=== PATIENT | female | born 1965 | race Caucasian/White ===

== ENCOUNTER 2022-07-30 19:05 | Emergency (ER) | payer OTHER ==
[~2022-07-30] VITALS: Ht 162.6 cm; Wt 72.6 kg
[2022-07-30 19:18] VITALS: BP 133/110
--- NOTE | 2022-07-30 19:22 | NUR ---
TO BED 4. ALTAGRACIA FROM [facility] WITH C/O RIGHT LEG/ HIP PAIN AFTER SLIP AND FALL ON PATIO. GUARDED ROM IS NOTED
--- NOTE | 2022-07-30 20:29 | NUR ---
CALL TO [facility] REGARDING DISCHARGE. WILL CALL BACK IN 10 MINUTES
--- NOTE | 2022-07-30 21:00 | NUR ---
PT HAS BEEN DISCHARGED. CALL HAS BEEN PLACED TO [facility], THEY ARE UNABLE TO PROVIDE TRANSPORTATION AT THIS TIME. CALL TO [employer] AND NOTIFIED THAT NO UBER IS AVAILABLE AT THIS TIME. CALL BACK TO [facility] WHO REQUESTS A TAXI BE CALLED AND THEY WILL PAY UPON PTS ARRIVAL
--- NOTE | 2022-07-30 21:20 | NUR ---
CALL TO [facility], NO ANSWER
--- NOTE | 2022-07-30 21:30 | NUR ---
Toño johnson in [facility] - 07/30/22 at 2152 by CARLOS EVERARDO LINDQUIST OBTAINED AND SENT TO LAB
--- NOTE | 2022-07-30 23:05 | NUR ---
Patient discharged with v/s stable. Written and verbal after care instructions given and explained. Patient verbalized understanding. Wheel Chair Assisted with to car. All questions addressed prior to discharge. Advised to follow up with PMD.
== END 2022-07-30 23:05 | disposition home or self-care (01) ==
LOC: MED 19:05
DX: M79.641 Pain in right hand (principal); M79.661 Pain in right lower leg; I10 Essential (primary) hypertension; E03.9 Hypothyroidism, unspecified; Z88.8 Allergy status to other drugs, medicaments and biological substances; Z79.899 Other long term (current) drug therapy; W18.30XA Fall on same level, unspecified, initial encounter; Y93.89 Activity, other specified; Y92.89 Other specified places as the place of occurrence of the external cause; Y99.8 Other external cause status
CPT/HCPCS: 99281

== ENCOUNTER 2022-08-09 15:21 | Emergency (ER) | payer OTHER ==
[~2022-08-09] VITALS: Ht 170.2 cm; Wt 99.8 kg
[2022-08-09 15:38] VITALS: BP 129/82
--- NOTE | 2022-08-09 15:40 | NUR ---
Patient ALTAGRACIA trasferred to room 10.
--- NOTE | 2022-08-09 19:20 | NUR ---
AWAKE, AMBULATING AT BEDSIDE AND READY FOR DISCHARGE
[2022-08-09 19:40] VITALS: BP 129/82
--- NOTE | 2022-08-09 19:40 | NUR ---
Patient discharged with v/s stable. Written and verbal after care instructions given and explained. Patient verbalized understanding. Ambulatory with steady gait. All questions addressed prior to discharge. Advised to follow up with PMD.
[2022-08-09 20:08] LABS: BARBITURATE, URINE NEGATIVE ng/ml (NEG <=200); BENZODIAZEPINE, URINE NEGATIVE ng/mL (NEG <=200); CANNABINOID, URINE NEGATIVE ng/mL (NEG <=50); COCAINE, URINE NEGATIVE ng/mL (NEG <=300); OPIATE, URINE NEGATIVE ng/mL (NEG <=2000); PHENCYCLIDINE SCREEN,URINE NEGATIVE ng/mL (NEG <=25)
== END 2022-08-09 19:40 | disposition home or self-care (01) ==
LOC: MED 15:21
DX: M54.2 Cervicalgia (principal); I10 Essential (primary) hypertension; Z86.39 Personal history of other endocrine, nutritional and metabolic disease; Z88.8 Allergy status to other drugs, medicaments and biological substances; W18.39XA Other fall on same level, initial encounter; Y92.89 Other specified places as the place of occurrence of the external cause; Y93.89 Activity, other specified; Y99.8 Other external cause status
CPT/HCPCS: 70450; 80305; 99284

== ENCOUNTER 2022-08-16 13:40 | Inpatient (IN) | payer OTHER ==
[~2022-08-16] VITALS: Ht 165.1 cm; Wt 93.0 kg
--- NOTE | 2022-08-16 13:41 | NUR ---
PATIENT BIBA TO BED 3.
--- NOTE | 2022-08-16 13:44 | NUR ---
here for upper back and neck pain, had a fall today am no distress noted, sr up times 2.
[2022-08-16 13:45] VITALS: BP 95/47
[2022-08-16] MEDS ORDERED: KETOROLAC 30 MG/ML VIAL IM ONE (14:15)
--- NOTE | 2022-08-16 14:41 | NUR ---
pt to xr
--- NOTE | 2022-08-16 16:36 | NUR ---
SNORING IN BED, EASILY AROUSABLE, NO SLEEP APNEA NOTED
[2022-08-16] MEDS ORDERED: ACET-10509 PO (16:41)
--- NOTE | 2022-08-16 16:53 | NUR ---
snoring, arousable with shaking, verbally responsive
--- NOTE | 2022-08-16 17:46 | NUR ---
ENTERED ABG RESULTS IN [employer] TECH. NORMAL ABG VALUES WILL TELL RN TO CONSIDER ITTRATING O2 FOR PT. SATURATION FROM ABG IS 94% ON 5L NC. NO DISTRESS NOTED
[2022-08-16 17:54] LABS: BASOPHILS % (AUTO) 0.2 % (0.0-2.0); HEMATOCRIT 34.9 % (36-48); HEMOGLOBIN 11.5 g/dL (12.0-16.0); LYMPHOCYTES # (AUTO) 1.1 K/uL (2.5-16.5); LYMPHOCYTES % (AUTO) 12.1 % (20.5-51.1); MEAN CORPUSCULAR HEMOGLOBIN 29 pg (27-31); MEAN CORPUSCULAR HGB CONC 33 g/dL (33-37); MEAN CORPUSCULAR VOLUME 87.4 fL (80-94); MONOCYTES # (AUTO) 1.3 K/uL (0.8-1.0); NEUTROPHILS # (AUTO) 6.9 K/uL (1.8-7.7); NEUTROPHILS % (AUTO) 73.7 % (42.2-75.2); PLATELET COUNT (AUTO) 182 K/uL (140-450); RED BLOOD CELL COUNT(AUTO) 3.99 MIL/uL (4.20-5.40); RED CELL DISTRIBUTION WIDTH 13.9 % (11.6-13.7); WHITE BLOOD COUNT (AUTO) 9.4 K/uL (4.8-10.8)
[2022-08-16 18:07] LABS: ALBUMIN 2.5 g/dL (3.4-5.0); ANION GAP 16.2 (8-16); CARBON DIOXIDE 23.5 mmol/L (21-32); CREATININE 1.9 mg/dL (0.6-1.3); POTASSIUM 3.7 mmol/L (3.5-5.1); TOTAL BILIRUBIN 0.5 mg/dL (0.0-1.0)
[2022-08-16] MEDS ORDERED: AZITHROMYCIN 500 MG in DEXTROSE 5% 250 ML IV ONE (18:35)
--- NOTE | 2022-08-16 19:30 | NUR ---
57 Y/O F presents with admit for pneumonia. pt is hard to arouse, pt arouses with sternum rubs. unable to obtain pain level at the moment, pt appears to be confused. pt is on 4L NC. skin intact. pmh-schizo allergies-haloperidol
--- NOTE | 2022-08-16 19:30 | NUR ---
assumed care for pt, pt appeared to be resting, respirations even and unlabored. pt awaiting admission.
[2022-08-16] MEDS ORDERED: AZITHROMYCIN 500 MG INJ VIAL IV ONE (19:46)
[2022-08-16] MEDS ORDERED: cefTRIAXone 1,000 MG VIAL ONE (19:46)
--- NOTE | 2022-08-16 19:55 | NUR ---
pt begin to scream "take this shit out of me, i pay to be here, take this shit out of my arm. i will kill you and your baby."
[2022-08-16] MEDS ORDERED: LORazepam 2 MG/ML VIAL IVP ONE (20:10)
[2022-08-16] MEDS ORDERED: HALOPERIDOL IM 5 MG/ML VIAL IVP ONE (20:10)
[2022-08-16] MEDS ORDERED: diphenhydrAMINE 50 MG/ML VIAL IVP ONE (20:10)
--- NOTE | 2022-08-16 21:41 | NUR ---
per admit clerk Hendrickson. pt accepted to [facility] [address] Cruz. Told to report to [phone]. told will call back with transport eta.
--- NOTE | 2022-08-16 22:15 | NUR ---
eta for pt transfer pickup at midnight.
--- NOTE | 2022-08-16 23:10 | NUR ---
order for soft restraints per er doctor. protocol initiated and documented.
--- NOTE | 2022-08-16 23:20 | NUR ---
spoke with nicolette ARCOS from [facility] and gave report. awaiting transfer
[2022-08-17] MEDS ORDERED: NACL 0.9% 1,000 ML IV ONE ×2 (00:05→00:20)
--- NOTE | 2022-08-17 01:40 | NUR ---
pt continuing to yell "get me out of here i dont like it here" pt continues to appear confused. pt awaiting admit
[2022-08-17 01:49] LABS: BILIRUBIN,URINE NEGATIVE (NEGATIVE); BLOOD, URINE 3+ (NEGATIVE); LEUKOCYTE ESTERASE ,URINE 2+ (NEGATIVE); NITRITE, URINE POSITIVE (NEGATIVE); UGLUCOSE NEGATIVE (NEGATIVE)
[2022-08-17 02:25] LABS: APPEARANCE,URINE CLOUDY (CLEAR); COLOR,URINE YELLOW (YELLOW)
[2022-08-17 02:27] LABS: RBC,URINE 0-5 /HPF (0-5)
[2022-08-17 02:28] LABS: WBC,URINE TOO MANY TO COUNT /HPF (0-5)
[2022-08-17 02:28] LABS: BARBITURATE, URINE NEGATIVE ng/ml (NEG <=200); BENZODIAZEPINE, URINE POSITIVE ng/mL (NEG <=200); CANNABINOID, URINE NEGATIVE ng/mL (NEG <=50); COCAINE, URINE NEGATIVE ng/mL (NEG <=300); OPIATE, URINE NEGATIVE ng/mL (NEG <=2000); PHENCYCLIDINE SCREEN,URINE NEGATIVE ng/mL (NEG <=25)
--- NOTE | 2022-08-17 05:12 | NUR ---
pt awaiting transfer. [facility] denied transfer.
--- NOTE | 2022-08-17 05:17 | NUR ---
pt continuing to scream "i want to get up and eat my lunch, let me live, i want [employer]veyrone to get sued and give me 5 dollars."
--- NOTE | 2022-08-17 05:25 | NUR ---
pt continues to scream "i am so pissed off roller roller skate."
[2022-08-17] MEDS ORDERED: KCL 20 MEQ IN 100 mL PREMIX 200 ML IV PRN (06:05)
[2022-08-17] MEDS ORDERED: MAGNESIUM OXIDE 400 MG TAB PO PRN (06:05)
[2022-08-17] MEDS ORDERED: POTASSIUM CHLORIDE 10 MEQ TABER PO PRN (06:05)
[2022-08-17] MEDS ORDERED: ACETAMINOPHEN 325 MG TAB PO PRN (06:05)
[2022-08-17] MEDS ORDERED: MORPHINE SULFATE 4 MG/ML SYR IVP PRN (06:05)
[2022-08-17] MEDS ORDERED: ONDANSETRON 4 MG/2 ML VIAL IVP PRN (06:05)
[2022-08-17] MEDS ORDERED: AZITHROMYCIN 500 MG in DEXTROSE 5% 250 ML IV SCH ×2 (06:05→20:30)
[2022-08-17] MEDS ORDERED: MAG SULF 2000 MG/WATER PREMIX 50 ML IV PRN (06:05)
[2022-08-17] MEDS ORDERED: HYDROcodone/APAP 5/325 MG 1 TAB TAB PO PRN (06:05)
--- NOTE | 2022-08-17 07:19 | NUR ---
Report received from JAREN Benjamin for transfer of care.
--- NOTE | 2022-08-17 07:45 | NUR ---
Patient was provided with incontinent care. Patient was made clean and dry.
--- NOTE | 2022-08-17 08:18 | NUR ---
Patient will be admitted to care of Dr. Garza. Admited to Telemetry. Will go to room 121-A. Belongings list completed. Report to JOSSELYN Nails.
--- NOTE | 2022-08-17 08:20 | NUR ---
The patient's care was reviewed and supervised by Shanta Kay, RN, RN.
--- NOTE | 2022-08-17 08:39 | NUR ---
RECEIVE NURSE REPORT FOR 57 YEARS OLD PATIENT FROM ER NURSE THAT PATIENT COME FORM [facility] FOR S/P FALL FROM BED W/ NECK PAIN, DIAGNOSIS PNA WITH HX OF SCHIZOPHRENIA, HTN, HYPOTHYROIDISM. PATIENT ALLERY TO HALOPERIDOL, FULL CODE, ON 4 LITER OXYGEN VIA NC, BED REST. PATIENT HAS RESTRAINT ORDER FROM ER BECAUSE BEHAVIOR ISSUE. TORADOL, ROCEPHIN, ZITHROMAX, ATIVAN 2MG, BENADRYL + HALDOL GIVEN IN ER. PIV AT L. HAND 22G, DISCOLORATION NOTE AT L. KNEE, WILL CONTINUE TO MONITOR
[2022-08-17] MEDS: DOCUSATE SODIUM 100 MG GELCAP PO SCH (08:52)
[2022-08-17 09:00] VITALS: BP 147/69
--- NOTE | 2022-08-17 09:18 | NUR ---
PATIENT HAS BEEN SCREENED AND CATEGORIZED MODERATE NUTRITION RISK. PATIENT WILL BE SEEN WITHIN 3-5 DAYS OF ADMISSION. 08/17/22-08/22/[address]
[2022-08-17 12:00] VITALS: BP 92/63
[2022-08-17] MEDS: DIVALPROEX 500 MG TABEC PO SCH ×2 (13:00→16:59)
[2022-08-17] MEDS: levoFLOXacin 750 MG TAB PO SCH (13:20)
[2022-08-17] MEDS ORDERED: LORazepam 1 MG TAB PO PRN (13:20)
[2022-08-17] MEDS ORDERED: OLANZapine 5 MG ODT SL PRN (13:20)
[2022-08-17] MEDS ORDERED: RENAL DOSING PER PHARMACY MC PRN (13:25)
--- NOTE | 2022-08-17 14:26 | NUR ---
RECEIVE CALL FROM [facility] ([phone]) CENTER FOR F/U WITH PATIENT'S STATUS. INFORM VIRIDIANA THAT PATIENT DIAGNOSIS WITH PNEUMONIA, AND CURRENT IS OBSERVATION STATUS. LEAVE UNIT FAX NUMBER AND PHONE NUMBER FOR UPDATE PATIENT'S HOME MEDS AND OTHER PATIENT CARE RELATED ISSUE. WILL CONTINUE TO MONITOR
--- NOTE | 2022-08-17 17:38 | NUR ---
AROUND 1700, PATIENT GET VERY AGITATED AND WANTS TAKING SHOWING, SECURITY CALLED, ATIVAN GIVEN, PCP INFORMED BUT BEFORE MD CALL BACK, PATIENT ALREADY REMOVE IV ACCESS & TEL. MONITOR; AROUND 1800, PATIENT HAD HER SHOWER. WILL CONTINUE TO MONITOR
--- NOTE | 2022-08-17 19:02 | NUR ---
ENDORSE PATIENT IN STABLE CONDITION TO PM SHIFT WITH NO IV ACCESS (PATIENT PULL IV OUT THIS AFTERNOON, PCP AWARE). PATIENT REST IN BED, AND ORDER FROM SNF, CLOZAPINE IN PLACE.
[2022-08-17 20:00] VITALS: BP 100/59
[2022-08-17] MEDS ORDERED: cloZAPine 100 MG TAB PO SCH ×2 (20:00)
[2022-08-18] MEDS ORDERED: cloZAPine 100 MG TAB PO SCH ×2 (08:00→09:00)
[2022-08-18] MEDS ORDERED: OLANZapine 5 MG TAB PO PRN (08:45)
[2022-08-18] MEDS: DIVALPROEX 500 MG TABEC PO SCH ×3 (10:01→17:12)
[2022-08-18] MEDS: levoFLOXacin 750 MG TAB PO SCH (10:02)
[2022-08-18] MEDS: DOCUSATE SODIUM 100 MG GELCAP PO SCH (10:02)
--- NOTE | 2022-08-18 12:47 | NUR ---
DC PLANNIN YRS OLD FEMALE PATIENT WAS ADMITTED FROM [facility] WITH A DX OF PNEUMONIA. PATIENT HAS A HX OF SCHIZOPHRENIA, HTN AND HYPOTHYROIDISM. CXR SHOWED MILD INTERSTITIAL PULMO EDEMA. CERVICAL SPICE XRAY SHOWED NO ACUTE FRACTURE. CONTINUED HOME MEDS. CONSULTED WITH NEPHRO. DC PLAN TO RETURN TO [facility]. CM TO FOLLOW
--- NOTE | 2022-08-18 14:00 | NUR ---
DC PLANNING ASSESSMENT COMPLETE PLEASE REFER TO ASSESSMENT FOR ADDITIONAL DETAILS ATTEMPTED TO MEET PT AT BEDSIDE HOWEVER, PT STRUGGLED TO COMPLETE ASSESSMENT, THEREFORE COLLAT INFO GATHERED FROM [facility] ADMIN. PT IS A 57 YR OLD FEMALE ADMITTED TO [facility] WITH DX OF PNA. PT HAS PAST MEDICAL HX OF SCHIZOPHRENIA, HTN & HYPOTHYROIDISM. PT IS UNDER SCHELLER PUBLIC GUARDIANSHIP, NISHANT CERVANTES, . PT HAS MENTAL HLTH HX OF SCHIZOPHRENIA. PT IS RESIDENT OF [facility], ADMISSION 12/16/21. [facility] REPORTS TENTATIVE DC PLAN IS FOR PT TO RETURN TO [facility], WHEN MEDICALLY STABLE. Addendum: 08/19/22 at 1532 by Rebecca SKELTON Amended: Links added.
--- NOTE | 2022-08-18 19:26 | NUR ---
ENDORSE PATIENT IN STABLE CONDITION TO PM SHIFT WITH NO IV ACCESS (PATIENT PULL IV OUT YESTERDAY, PCP AWARE). PATIENT REST IN BED, REFUSING BLOOD PRESSURE CHECK BECAUSE IT "SQUEEZE" ARM
--- NOTE | 2022-08-18 19:30 | NUR ---
RECEIVED PATIENT FROM AM NURSE FOR CONTINUITY OF CARE. PATIENT IS STABLE
[2022-08-18] MEDS: cloZAPine 100 MG TAB PO SCH (20:00)
--- NOTE | 2022-08-19 07:10 | NUR ---
ASSUMED CONTINUITY OF CARE. INITIAL ASSESSMENT DONE. RE-ORIENTED TO EVENTS AND SURROUNDINGS. EXPLAINED USE OF CALL LIGHT/BED/TV/BATHROOM. VERBALIZED UNDERSTANDING. FALL PRECAUTION APPLIED. CALL LIGHT WITHIN REACH.
[2022-08-19 08:00] VITALS: BP 127/71
[2022-08-19] MEDS: DIVALPROEX 500 MG TABEC PO SCH ×3 (08:50→16:43)
[2022-08-19] MEDS: cloZAPine 100 MG TAB PO SCH ×2 (08:50→20:00)
[2022-08-19] MEDS: DOCUSATE SODIUM 100 MG GELCAP PO SCH (08:50)
--- NOTE | 2022-08-19 09:00 | NUR ---
Patient's Plan of Care was discussed and reviewed with JAREN: HAYDER
--- NOTE | 2022-08-19 11:54 | NUR ---
DR. BELTRÁN SPOKE TO PT. AT BEDSIDE TRIED TO CONVINCE PT. TO HAVE IV ACCESS. PT. REFUSED IV INSERTION.
[2022-08-19] MEDS ORDERED: COMMUNICATION ORDER MC SCH (12:00)
[2022-08-19] MEDS ORDERED: cefTRIAXone 1,000 MG in LIDOCAINE MPF 1% 2.1 ML INJ SCH (13:00)
[2022-08-19] MEDS: cefTRIAXone 1,000 MG in LIDOCAINE MPF 1% 2.1 ML IM SCH (13:53)
[2022-08-19 16:00] VITALS: BP 117/77
--- NOTE | 2022-08-19 19:17 | NUR ---
REPORT GIVEN TO TYLER CHACON FOR CONTINUITY OF CARE. CALM AND QUIET AT THIS TIME. IN STABLE CONDITION.
--- NOTE | 2022-08-19 19:25 | NUR ---
RECEIVED PATIENT FROM AM NURSE FOR CONTINUITY OF CARE. PATIENT IS STABLE
[2022-08-20 04:00] VITALS: BP 120/79
--- NOTE | 2022-08-20 05:30 | NUR ---
PATIENT REFUSED BLOOD DRAW
--- NOTE | 2022-08-20 07:25 | NUR ---
ASSUMED CONTINUITY OF CARE. INITIAL ASSESSMENT DONE. NON-COMPLIANT AT TIMES. KEEP COMFORTABLE ON BED. FALL PRECAUTION APPLIED. CALL LIGHT WITHIN REACH.
--- NOTE | 2022-08-20 07:25 | NUR ---
ENDORSED PATIENT TO AM NURSE FOR CONTINUITY OF CARE.PT IS STABLE
[2022-08-20 08:00] VITALS: BP 110/69
[2022-08-20] MEDS: DOCUSATE SODIUM 100 MG GELCAP PO SCH (08:52)
[2022-08-20] MEDS: levoFLOXacin 750 MG TAB PO SCH (08:52)
[2022-08-20] MEDS: cloZAPine 100 MG TAB PO SCH ×2 (08:53→19:52)
[2022-08-20] MEDS: DIVALPROEX 500 MG TABEC PO SCH ×3 (08:53→17:34)
--- NOTE | 2022-08-20 09:46 | NUR ---
DR. BELTRÁN CAME AND SPOKE TO PT. AT BEDSIDE.
[2022-08-20] MEDS ORDERED: SODIUM IM SCH (13:00)
[2022-08-20] MEDS ORDERED: CEFTRIAXONE IM SCH (13:00)
[2022-08-20] MEDS: cefTRIAXone 1,000 MG in LIDOCAINE MPF 1% 2.1 ML IM SCH (13:21)
--- NOTE | 2022-08-20 14:46 | NUR ---
08/20/22 RD INITIAL ASSESSMENT COMPLETED PLEASE REFER TO NUTRITION ASSESSMENT UNDER CARE ACTIVITY FOR ESTIMATED NUTRITIONAL NEEDS. 1. CONTINUE [id number] DIET TOLERATED 2. MONITOR PO INTAKE AND NUTRITION RELATED LAB VALUES 3. RD TO FOLLOW-UP 7 DAYS, LOW RISK REVIEWED BY SANTI VICTORIA RD
--- NOTE | 2022-08-20 16:00 | NUR ---
REFUSED VS TAKEN AT THIS TIME. NO ACUTE DISTRESS NOTED,.
--- NOTE | 2022-08-20 19:05 | NUR ---
REPORT GIVEN TO GAVINO CHACON. IN STABLE CONDITION. CALM AND QUIET RESTING ON BED.
--- NOTE | 2022-08-20 19:10 | NUR ---
RECEIVED PATIENT USING THE COMMODE, CALM, NO SIGNS OF PAIN/DISCOMFORT NOTED, IN NO ACUTE DISTRESS.
--- NOTE | 2022-08-20 19:52 | NUR ---
PATIENT REFUSED VITAL SIGNS, PATIENT GIVEN SCHEDULED MEDICATION, TOOK MEDICATION. WILL CONTINUE TO MONITOR THE PATIENT.
--- NOTE | 2022-08-20 21:35 | NUR ---
PATIENT IS ASLEEP, BREATHING EVEN AND NON LABORED ON ROOM AIR. BED IN LOW AND LOCKED POSITION. WILL CONTINUE TO MONITOR THE PATIENT.
--- NOTE | 2022-08-20 23:45 | NUR ---
PATIENT GIVEN SHOWER. LINENS CHANGED.
--- NOTE | 2022-08-21 01:21 | NUR ---
PATIENT IS ASLEEP, NO SIGNS OF DISTRESS NOTED, NO SIGNS OF PAIN NOTED. BED IN LOW AND LOCKED POSITION.
--- NOTE | 2022-08-21 04:30 | NUR ---
PATIENT REFUSED VITALS. PATIENT REFUSED BLOOD DRAW PER LAB STAFF. NO SIGNS OF DISTRESS NOTED, PATIENT DENIES PAIN. BED IN LOW AND LOCKED POSITION.
--- NOTE | 2022-08-21 06:51 | NUR ---
PATIENT IS IN STABLE CONDITION. WILL ENDORSE TO DAY NURSE FOR CONTINUITY OF CARE.
--- NOTE | 2022-08-21 07:25 | NUR ---
RECEIVED REPORT FROM PENOLOGY TEACHER FOR CONTINUITY OF CARE. INITIAL ASSESSMENT DONE. ALERT AND ORIENTED X 2. NO IV ACCESS. NO C/O PAIN OR DISCOMFORT. CALL LIGHT KEPT WITHIN REACH. WILL CONTINUE TO MONITOR.
[2022-08-21 08:00] VITALS: BP 110/64
--- NOTE | 2022-08-21 10:00 | NUR ---
SCHEDULED MEDICATION GIVEN. TOLERATING WELL.
[2022-08-21] MEDS: DIVALPROEX 500 MG TABEC PO SCH ×2 (10:01→14:09)
[2022-08-21] MEDS: levoFLOXacin 750 MG TAB PO SCH (10:01)
[2022-08-21] MEDS: DOCUSATE SODIUM 100 MG GELCAP PO SCH (10:02)
[2022-08-21] MEDS: cloZAPine 100 MG TAB PO SCH (10:04)
--- NOTE | 2022-08-21 12:10 | NUR ---
CALLED [facility], SPOKE TO [facility] TRANSPORTATION ARRANGE. DIVISION TRAFFIC SUPERINTENDENT TIME 1400.
[2022-08-21] MEDS ORDERED: [UNRECOGNIZED DRUG - CODE] PO ×2 (12:31)
[2022-08-21] MEDS ORDERED: ACET-1182 PO (12:31)
[2022-08-21] MEDS ORDERED: DIVA500E2 PO (12:31)
[2022-08-21] MEDS ORDERED: OLAN5ODT9 SL (12:31)
[2022-08-21] MEDS ORDERED: LIDOCAINE MPF 1% 5 ML ONE (14:08)
[2022-08-21] MEDS ORDERED: cefTRIAXone 1,000 MG VIAL ONE (14:08)
[2022-08-21] MEDS: cefTRIAXone 1,000 MG in LIDOCAINE MPF 1% 2.1 ML IM SCH (14:19)
--- NOTE | 2022-08-21 14:19 | NUR ---
SCHEDULED ROCEPHIN IM AND DEPAKOTE PO WAS GIVEN. TOLERATING WELL.
--- NOTE | 2022-08-21 15:00 | NUR ---
PT LEFT. DISCHARGE BACK TO [facility]. TRANSPORTED BY FACILITY VAN PER WHEELCHAIR. ACCOMPANIED BY 2 FEMALE STAFF. ALERT AND ORIENTED X 2. RESP. EVEN AND UNLABORED. ID BAND REMOVED. DISCHARGE [id number] DISCUSS TO STAFF. PERSONAL BELONGINGS TAKEN. REMAINS STABLE.
== END 2022-08-21 15:00 | disposition home or self-care (01) | DRG 871 ==
LOC: MED 13:40 → OBSVTOIN 08-17 06:06 → MTU 08-17 06:06 → MED 08-17 06:06
PROVIDERS: ADMIT Internal Medicine; ATTEND Internal Medicine
DX: A41.9 Sepsis, unspecified organism (principal); J18.9 Pneumonia, unspecified organism; J96.01 Acute respiratory failure with hypoxia; N17.9 Acute kidney failure, unspecified; E03.9 Hypothyroidism, unspecified; F20.9 Schizophrenia, unspecified; I12.9 Hypertensive chronic kidney disease with stage 1 through stage 4 chronic kidney disease, or unspecified chronic kidney disease; N18.9 Chronic kidney disease, unspecified; D63.1 Anemia in chronic kidney disease; Z20.822 Contact with and (suspected) exposure to COVID-19; E88.09 Other disorders of plasma-protein metabolism, not elsewhere classified; Z88.8 Allergy status to other drugs, medicaments and biological substances
CPT/HCPCS: 36415; 36600; 70450; 71045; 72040; 72100; 76770; 80053; 80178; 80305; 81001; 82803; 83880; 84484; 85025; 87081; 87086; 93005; 96365; 96367; 96372; 96375; 99285; J0456; J0696; J1200; J1630; J1644; J1885; J2001; J2060; J7060; Q0092

== ENCOUNTER 2022-09-10 05:38 | Emergency (ER) | payer OTHER ==
[~2022-09-10] VITALS: Ht 165.1 cm; Wt 91.6 kg
[~2022-09-10 05:38] MED LIST: ACET-10509 PO; ACET-1182 PO; DIVA500E2 PO; OLAN5ODT9 SL; [UNRECOGNIZED DRUG - CODE] PO
[2022-09-10 05:47] VITALS: BP 109/76
--- NOTE | 2022-09-10 06:05 | NUR ---
C/O Anxiety x today. Patient reported, need to get a shot and refill medication. PMHx: Anxiety, and Panic attack Med: Depakote
--- NOTE | 2022-09-10 06:09 | NUR ---
Called [facility], If patient will be release from hospital, contact Long-Term staff.
--- NOTE | 2022-09-10 06:13 | NUR ---
PT TAKEN TO BED 3
--- NOTE | 2022-09-10 06:29 | NUR ---
Dr. Perea examining patient.
[2022-09-10] MEDS ORDERED: DIVA250T PO (06:35)
[2022-09-10] MEDS ORDERED: ATA25 PO (06:35)
[2022-09-10 07:17] VITALS: BP 109/76
--- NOTE | 2022-09-10 07:22 | NUR ---
Patient discharged with v/s stable. Written and verbal after care instructions given and explained. Patient verbalized understanding. Ambulatory with steady gait. All questions addressed prior to discharge. Advised to follow up with PMD. pt left with belongings and taken with ani
== END 2022-09-10 07:51 | disposition home or self-care (01) ==
LOC: MED 05:38
DX: F41.9 Anxiety disorder, unspecified (principal); J45.909 Unspecified asthma, uncomplicated; I10 Essential (primary) hypertension; F17.200 Nicotine dependence, unspecified, uncomplicated; Z86.69 Personal history of other diseases of the nervous system and sense organs; Z86.39 Personal history of other endocrine, nutritional and metabolic disease; Z79.899 Other long term (current) drug therapy; Z88.8 Allergy status to other drugs, medicaments and biological substances
CPT/HCPCS: 99283

== ENCOUNTER 2022-10-06 14:51 | Emergency (ER) | payer OTHER ==
[~2022-10-06] VITALS: Ht 170.2 cm; Wt 90.7 kg
[~2022-10-06 14:51] MED LIST changes: +ATA25 PO; +DIVA250T PO
--- NOTE | 2022-10-06 16:02 | NUR ---
NO ANSWER WHEN CALLED FROM [facility]
--- NOTE | 2022-10-06 16:44 | NUR ---
ELIZA [phone] OFFICE OF PUBLIC OF [facility]. TO FAX OVER DOCUMENTATION.
--- NOTE | 2022-10-06 17:51 | NUR ---
PT COMBATIVE. REFUSING TO ALLOW FOR TRIAGE. LENA RN INFORMED.
--- NOTE | 2022-10-06 17:54 | NUR ---
ATTEMPTED TO TALK TO PT. AND TO TRIAGE HER. PT. IS VERY AGRESSIVE, DELUSIONAL AND STATES "I DON'T BE WANT TO BE A CAPPS." PT IS REFUSING ALL CARE FOR NOW. REFUSING AN UBER RIDE BACK TO HER DETENTION [facility]
--- NOTE | 2022-10-06 18:41 | NUR ---
ATTEMPTED AGAIN TO TRIAGE PT. BUT SHE REFUSED. SPOKE WITH MD ABOUT IT AND HE STATES THAT PT. CAN BE DISPOSED FROM ER.
--- NOTE | 2022-10-06 18:45 | NUR ---
PT. IS LEFT WITHOUT BEING SEE BY
--- NOTE | 2022-10-06 19:14 | NUR ---
INFORMED BY JOSSELYN PAREDES. PT NOT WILLINING TO BE TREATED AND REFUSED TRIAGE AND [facility] CALLED FOR ASSISTANCE. UPON ARRIVAL PD PLACED PT ON 5150 HOLD FOR DTO/GD.
[2022-10-06 19:25] VITALS: BP 94/60
--- NOTE | 2022-10-06 19:25 | NUR ---
PT PLACED IN CHAIR C IN VIEW OF NURSING STAFF.
[2022-10-06 20:17] LABS: BASOPHILS % (AUTO) 0.3 % (0.0-2.0); EOSINOPHILS # (AUTO) 0.1 K/uL (0-0.4); EOSINOPHILS % (AUTO) 1.1 % (0.0-4.0); HEMATOCRIT 34.5 % (36-48); HEMOGLOBIN 11.4 g/dL (12.0-16.0); LYMPHOCYTES # (AUTO) 2.6 K/uL (2.5-16.5); LYMPHOCYTES % (AUTO) 42.5 % (20.5-51.1); MEAN CORPUSCULAR HEMOGLOBIN 29 pg (27-31); MEAN CORPUSCULAR HGB CONC 33 g/dL (33-37); MEAN CORPUSCULAR VOLUME 86.1 fL (80-94); MONOCYTES # (AUTO) 0.6 K/uL (0.8-1.0); MONOCYTES % (AUTO) 9.6 % (1.7-9.3); NEUTROPHILS # (AUTO) 2.9 K/uL (1.8-7.7); NEUTROPHILS % (AUTO) 46.5 % (42.2-75.2); PLATELET COUNT (AUTO) 201 K/uL (140-450); RED BLOOD CELL COUNT(AUTO) 4.01 MIL/uL (4.20-5.40); RED CELL DISTRIBUTION WIDTH 15.8 % (11.6-13.7); WHITE BLOOD COUNT (AUTO) 6.1 K/uL (4.8-10.8)
--- NOTE | 2022-10-06 20:37 | NUR ---
PT TAKEN TO BED 5
--- NOTE | 2022-10-06 20:37 | NUR ---
57 Y/O F presents with DTO/GD placed on . pt appears to talk to self with mumbling, disorganized and confused at times. pt stripped of belongings and sent with security, room stripped. pt resting in room. pt is amabulatory to restroom with no assistance. pmh- allergies- haloperidol
[2022-10-06 21:11] LABS: ALBUMIN 3.1 g/dL (3.4-5.0); ANION GAP 12.9 (8-16); ASPARTATE AMINOTRANSFERASE 16 U/L (15-37); CARBON DIOXIDE 26.2 mmol/L (21-32); CHLORIDE 108 mmol/L (98-107); CREATININE 1.5 mg/dL (0.6-1.3); GFR ARICAN-AMERICAN 46 mL/min (>90); GLUCOSE 84 mg/dL (74-106); POTASSIUM 4.1 mmol/L (3.5-5.1); SALICYLATE 3.2 mg/dL (2.8-20.0); SODIUM SERUM 143 mmol/L (136-145); TOTAL BILIRUBIN 0.2 mg/dL (0.0-1.0); UREA NITROGEN, BLOOD 18 mg/dL (7-18)
[2022-10-06 21:29] LABS: BARBITURATE, URINE NEGATIVE ng/ml (NEG <=200); BENZODIAZEPINE, URINE NEGATIVE ng/mL (NEG <=200); CANNABINOID, URINE NEGATIVE ng/mL (NEG <=50); COCAINE, URINE NEGATIVE ng/mL (NEG <=300); OPIATE, URINE NEGATIVE ng/mL (NEG <=2000); PHENCYCLIDINE SCREEN,URINE NEGATIVE ng/mL (NEG <=25)
--- NOTE | 2022-10-06 22:34 | NUR ---
unable to obtain suicide severity scale questions due to pt being disorientated and confused at times. charge nurse notified
[2022-10-06] MEDS ORDERED: ZIPRASIDONE MESYLATE 20 MG/ML VIAL IM ONE (23:30)
[2022-10-06] MEDS ORDERED: diphenhydrAMINE 50 MG/ML VIAL IM ONE (23:30)
--- NOTE | 2022-10-07 01:15 | NUR ---
PT RESTING IN ROOM, CONFUSED AT TIMES, UNABLE TO ANSWER QUESTIONS. RESPIRATIONS EVEN AND UNLABORED
--- NOTE | 2022-10-07 05:50 | NUR ---
PT AMBULATORY TO RESTROOM WITHOUT ASSISTANCE
--- NOTE | 2022-10-07 06:08 | NUR ---
PT YELLING IN ROOM "I HAVE TO GO TO THE BATHROOM." "GET AWAY."
[2022-10-07] MEDS ORDERED: LORazepam 1 MG TAB PO ONE (07:40)
--- NOTE | 2022-10-07 07:55 | NUR ---
PATIENT CONSUMING BREAKFAST WITHOUT ASSISTANCE.
--- NOTE | 2022-10-07 08:06 | NUR ---
PATIENT AMBULATED TO WASHROOM FOR A SHOWER WITH JAREN ROJO.
[2022-10-07] MEDS ORDERED: LORazepam 1 MG TAB ONE (08:41)
[2022-10-07] MEDS ORDERED: DIVALPROEX 500 MG TABEC PO ONE (09:00)
[2022-10-07] MEDS: cloZAPine 100 MG TAB PO SCH ×2 (09:21→21:00)
[2022-10-07] MEDS ORDERED: KETOROLAC 30 MG/ML VIAL IM ONE (12:05)
[2022-10-07] MEDS ORDERED: ZIPRASIDONE MESYLATE 20 MG/ML VIAL IM ONE ×2 (12:05→12:11)
--- NOTE | 2022-10-07 12:05 | NUR ---
PT YELLING AND COMPLAINING OF R LEG PAIN. MADE AWARE
--- NOTE | 2022-10-07 19:23 | NUR ---
Pt report given to woodrow rothman. Transfer of care at this time.
--- NOTE | 2022-10-07 19:30 | NUR ---
received pt awake, eating dinner tray
--- NOTE | 2022-10-08 02:15 | NUR ---
REPORT CALLED TO JOSSELYN BURNETT AT [facility]
--- NOTE | 2022-10-08 02:22 | NUR ---
[facility] HERE FOR PT
[2022-10-08 02:30] VITALS: BP 124/63
--- NOTE | 2022-10-08 02:30 | NUR ---
Patient transferred to [facility]. Receiving facility has accepting physician and available space. ER physician has signed transfer form. Patient belongings inventoried and will be sent with patient. Copy of nursing notes, lab reports, EKG, Physicians Orders and X-rays to be sent with patient. Report called to HORTENCIA at receiving facility.
== END 2022-10-08 02:30 ==
LOC: MED 14:51
DX: F23 Brief psychotic disorder (principal); J45.909 Unspecified asthma, uncomplicated; I10 Essential (primary) hypertension; E07.9 Disorder of thyroid, unspecified; Z20.822 Contact with and (suspected) exposure to COVID-19; Z88.5 Allergy status to narcotic agent; Z79.899 Other long term (current) drug therapy
CPT/HCPCS: 36415; 80053; 80305; 81025; 85025; 87426; 87635; 96372; 99285; G0480; G0482; J1200; J3486

== ENCOUNTER 2022-12-22 07:00 | Emergency (ER) | payer OTHER ==
[~2022-12-22] VITALS: Ht 170.2 cm; Wt 84.4 kg
[2022-12-22 07:00] VITALS: BP 115/69; PULSE 68; RESP 17; TEMP 98.1; O2SAT 95
--- NOTE | 2022-12-22 07:00 | NUR ---
TO BED AMBULATORY, BIBA FROM BOARDING CARE WITH LACAERATION TO LEFT HAND, NO BLEEDING AT THIS TIME. UNSURE OF TETANUS VACCINE
[2022-12-22 07:38] VITALS: O2SAT 93
--- NOTE | 2022-12-22 07:38 | NUR ---
1ST CONTACT W/PT. PT SAYS SHE PUT HER LEFT HAND THROUGH A WINDOW. SAYS SHE PUNCHED WINDOW WITH ANGER. SAYS SHE HAS NO SI OR HI THOUGHTS OR PLANS AT THIS TIME. PT NOTED TO HAVE FLIGHT OF THOUGHTS. PT IS DISORIENTED TO TIME, REPORTS HER NAME IS NOT JEFRY BUT SHANTA. PT DENIED ANY PAST MEDICAL CONDITIONS, THEN REPORTS SHE HAS A "THYROID CONDITION" BUT HAS NOT BEEN ON MEDS FOR OVER 10 YEARS. PT SAYS SHE IS TAKING MEDICATIONS BUT DOES NOT KNOW THE NAMES OF MEDICATIONS, PT THEN STARTS TALKING ABOUT OTHER SUBJECTS, UNABLE TO REDIRECT PT. PT ALSO HAD BURST OF ANGER WHEN ASKED ABOUT LAST NAME. ABRASIONS AND SKIN TEAR NOTED TO LEFT HAND. PT REPORTS SENSATION INTACT, ABLE TO MOVE DIGITS EASILY. CAP REFILL <2SEC LEFT HAND
[2022-12-22] MEDS ORDERED: BACITRACIN OINT 500 UNITS/GM PKT TP ONE (08:00)
[2022-12-22] MEDS ORDERED: BACO TP (08:02)
[2022-12-22] MEDS ORDERED: ACETAMINOPHEN EXTRA STRENGTH 500 MG TAB PO ONE (08:05)
--- NOTE | 2022-12-22 08:27 | NUR ---
PT REFUSING TETANUS VACCINE. PT CONFUSED, PT THINKS THIS RN IS HER SISTER, UNABLE TO REDIRECT.
--- NOTE | 2022-12-22 09:25 | NUR ---
Patient discharged with v/s stable. Written and verbal after care instructions FOR NONSUTURED LAC given and explained. Patient alert, oriented and verbalized understanding of instructions. Ambulatory with steady gait. All questions addressed prior to discharge. ID band removed. Patient advised to follow up with PMD. Rx of BACITRACIN OINT given. Opportunity to ask questions provided and answered.
== END 2022-12-22 09:25 | disposition home or self-care (01) ==
LOC: MED 07:00
DX: S61.412A Laceration without foreign body of left hand, initial encounter (principal); J45.909 Unspecified asthma, uncomplicated; I10 Essential (primary) hypertension; E07.9 Disorder of thyroid, unspecified; Z79.899 Other long term (current) drug therapy; Z88.5 Allergy status to narcotic agent; W22.8XXA Striking against or struck by other objects, initial encounter; Y93.89 Activity, other specified; Y92.89 Other specified places as the place of occurrence of the external cause; Y99.8 Other external cause status
CPT/HCPCS: 73130; 99283; Q0092; 90715